=== PATIENT | male | born 1950 | race Caucasian/White ===

== ENCOUNTER 2018-01-15 09:01 | Emergency (ER) | payer BC ==
[2018-01-15 09:08] VITALS: BP 153/81
--- NOTE | 2018-01-15 09:44 | UC ---
Skin Complaint HPI - HPI Summary HPI Summary: This patient is a 67 year old M presenting to [facility] [place] with a chief complaint of a change in facial skin that he noticed today. He has had actinic keratosis on his scalp and face for a while now. - History of Current Complaint Chief Complaint: UCSkin Time Seen by Provider: 01/15/18 09:30 Stated Complaint: RASH Hx Obtained From: Patient Onset/Duration: Gradual Onset, Still Present Pain Intensity: 0 Pain Scale Used: 0-10 Numeric Location: Diffuse - Face and scalp - Allergy/Home Medications Allergies/Adverse Reactions: Allergies Allergy/AdvReac Type Severity Reaction Status Date / Time peanut Allergy Intermediate Anaphylatic Uncoded 01/15/18 09:08 Shock Review of Systems Constitutional: Fever - Denies Skin: Other - Discoloration on his scalp and face All Other Systems Reviewed And Are Negative: Yes PMH/Surg Hx/FS Hx/Imm Hx Psychological History: Depression Other History Of: Negative For: HIV, Hepatitis B, Hepatitis C, Anticoagulant Therapy - Surgical History Surgical History: Yes Surgery Procedure, Year, and Place: BIOPSY ON NECK , TONSILS , LEFT LEG CORRECTIVE SURGERY FROM POLIO - Family History Known Family History: Positive: Cardiac Disease Negative: Hypertension, Diabetes - Social History Occupation: Unemployed Lives: With Family Alcohol Use: Weekly Alcohol Amount: couple glasses of wine per week Substance Use Type: None Smoking Status (MU): Never Smoked Tobacco Physical Exam - Summary Physical Exam Summary: VITAL SIGNS: Reviewed. GENERAL: Patient is a well-developed and nourished MALE who is lying comfortable in the stretcher. Patient is not in any acute respiratory distress. HEAD AND FACE: Brownage and discoloration in skin of the scalp and face with irregular borders. EYES: PERRLA, EOMI x 2. EARS: Hearing grossly intact. MOUTH: Oropharynx within normal limits. NECK: Supple, trachea is midline, no adenopathy, no JVD, no carotid bruit. CHEST: Symmetric, no tenderness at palpation LUNGS: Clear to auscultation bilaterally. No wheezing or crackles. CVS: Regular rate and rhythm, S1 and S2 present, no murmurs or gallops appreciated. ABDOMEN: Soft, non-tender. Bowel sounds are normal. No abdominal abnormal pulsations. EXTREMITIES: Full ROM in all major joints, no edema, no cyanosis or clubbing. NEURO: Alert and oriented x 3. No acute neurological deficits. Speech is normal and follows commands. SKIN: Dry and warm Triage Information Reviewed: Yes Vital Signs: Initial Vital Signs Temp 98 F 01/15/18 09:05 Pulse 82 01/15/18 09:05 Resp 17 01/15/18 09:05 BP 153/81 01/15/18 09:05 Pulse Ox 98 01/15/18 09:05 Vital Signs Reviewed: Yes Course/Dx - Course Course Of Treatment: Patient is a 59-year-old male who presents to the urgent care with a chief complaint of having a rash and the scalp and the face. Patient reports that he has been diagnosed with actinic keratosis in the past but he has not seen a plow mechanic for this issue. He has no other complaints. In the physical exam I believe that the patient has actinic keratosis were no other symptoms. Therefore the patient will be discharged home with follow-up with dermatology. He was instructed to return to the urgent care if he develops any other symptoms. He understands and agrees. - Diagnoses Provider Diagnoses: Dermatitis Discharge - Sign-Out/Discharge Documenting (check all that apply): Patient Departure - D/C All imaging exams completed and their final reports reviewed: No Studies - Discharge Plan Condition: Stable Disposition: HOME Patient Education Materials: Dermatitis (ED) Referrals: Jean Carlos Barker MD [Primary Care Provider] - Pili Camilo [Medical Doctor] - Additional Instructions: Return to the or go to the emergency department if symptoms worsen Follow-up with primary care physician in next 2-3 days - Billing Disposition and Condition Condition: STABLE Disposition: Home - Attestation Statements Document Initiated by Rosalinaibe: Yes Documenting Scribe: Tone Calhoun Provider For Whom Katrin is Documenting (Include Credential): Alf Killian MD Scribe Attestation: Tone Carvajal, scribed for Alf Killian MD on 01/16/18 at 2139. Scribe Documentation Reviewed: Yes Provider Attestation: The documentation as recorded by the Tone hinton accurately reflects the service I personally performed and the decisions made by me, Alf Killian MD
== END 2018-01-15 09:50 | disposition home or self-care (01) ==
LOC: UCEAST 09:01
DX: L30.9 Dermatitis, unspecified (principal); L57.0 Actinic keratosis; Z91.010 Allergy to peanuts
CPT/HCPCS: 99211; G0463